=== PATIENT | female | born 1965 | race African-American/Black ===

== ENCOUNTER → 2016-10-18 | Outpatient (CLI) | payer BC ==
[2016-04-06 11:00] VITALS: BP 121/63
[~2016-10-18] MED LIST: ASCO500C PO; BISM262T9 PO; EZET10TA3 PO; FLUT9.9S NS; GADOBUTROL 10 MMOL/10 ML VIAL IV ONE; HYDR-2762 PO; IBUP200T77 PO; INSU100V13 SQ; LEVO25TA55 PO; METF-620 PO; METO25TA2 PO; ONDA4TAB7 PO; OXYC-323 PO; PARO10TA24 PO; SIME80TA PO; TRIA1CAP3 PO
--- NOTE | 2016-10-18 09:40 | KCIC ---
PROCEDURE MRI lumbar spine without and with contrast. HISTORY Low back pain, bilateral sciatica, symptoms worse in recent months TECHNIQUE Post-contrast multiplanar, multi sequential MR imaging was performed of the lumbar spine. Contrast: 10 cc Gadavist. COMPARISON None FINDINGS Lumbar vertebral body stature is preserved. There is very mild grade 1 anterior spondylolisthesis L4-5. Intervertebral disc spaces are overall adequate, mild disc desiccation at T12-L1. Conus terminates at L1-2. There is no nodular enhancement of the conus or cauda equina, no enhancement in the intervertebral disc spaces. There is no focal marrow edema. There is small hemangioma of the posterior right L1 vertebral body. There is a left adnexal cyst on the order of 2.1 cm longitudinal. L3-4: Neural foramina and spinal canal are adequate. L4-5: There is mild facet hypertrophic change, fluid in the left facet articulation. There is mild buckling of the ligamentum flavum. Spinal canal and the neural foramina are adequate. L5-S1: Neural foramina and spinal canal are adequate. IMPRESSION 1. There is no significant lumbar spinal stenosis or neural foramina compromise. There is very mild grade 1 anterior spondylolisthesis at L4-5 due to facet degenerative change. 2. There is left adnexal cyst on the order of 2.1 cm. Electronically signed by: Leo Sharma MD (October 18, 2016 09:38:50)
== END | disposition home or self-care (01) ==
LOC: KCIC MRI 07:45
PROVIDERS: ATTEND Psychiatry & Neurology Neurology
DX: M43.16 Spondylolisthesis, lumbar region (principal); N83.8 Other noninflammatory disorders of ovary, fallopian tube and broad ligament
CPT/HCPCS: 72158; A9585